=== PATIENT | female | born 1950 | race Caucasian/White ===

== ENCOUNTER → 2021-03-24 | Outpatient (CLI) | payer BC, OTHER ==
[~2021-03-24] MED LIST: PAXIL10 MG PO; PROPRANOLOL 1010 MG PO
== END ==
LOC: SJCVCIMAG 07:35
PROVIDERS: ATTEND Family Medicine
DX: I35.1 Nonrheumatic aortic (valve) insufficiency (principal); R00.0 Tachycardia, unspecified; E78.5 Hyperlipidemia, unspecified; I10 Essential (primary) hypertension

== ENCOUNTER 2021-09-19 08:01 | Emergency (ER) | payer BC, OTHER ==
[~2021-09-19] VITALS: Ht 157.5 cm; Wt 57.6 kg
[2021-09-19] MEDS ORDERED: NAPROSYN500 M1 PO (08:55)
[2021-09-19 09:03] VITALS: BP 139/80
== END 2021-09-19 09:07 | disposition home or self-care (01) ==
LOC: ER 08:01
DX: S00.03XA Contusion of scalp, initial encounter (principal); G43.909 Migraine, unspecified, not intractable, without status migrainosus; Z90.13 Acquired absence of bilateral breasts and nipples; Z90.711 Acquired absence of uterus with remaining cervical stump; Z98.890 Other specified postprocedural states; Z79.899 Other long term (current) drug therapy; Z88.8 Allergy status to other drugs, medicaments and biological substances; Z91.041 Radiographic dye allergy status; W22.8XXA Striking against or struck by other objects, initial encounter; Y93.89 Activity, other specified; Y92.89 Other specified places as the place of occurrence of the external cause; Y99.8 Other external cause status